=== PATIENT | female | born 1945 | race Caucasian/White ===

== ENCOUNTER → 2016-08-14 | Outpatient (CLI) | payer MEDICARE, OTHER ==
[~2016-08-14] MED LIST: ASPI-515 PO; BUTA1CAP30 PO; CALCIUM WITH D; DULO60CA7 PO; FISH1CAP7 PO; HYDR-3240 PO; LEVO112T2 PO; LISI-170 PO; MULT1TAB9 PO; OXCA600T3 PO; PANT40TA3 PO; PROP60CA8 PO; SIMV20TA PO; UBID150C PO
== END | disposition home or self-care (01) ==
LOC: CFH 14:32
PROVIDERS: ATTEND Internal Medicine Cardiovascular Disease
DX: R07.89 Other chest pain (principal); R06.02 Shortness of breath
CPT/HCPCS: 93306

== ENCOUNTER → 2016-08-15 | Outpatient (CLI) | payer MEDICARE, OTHER ==
[~2016-08-15] MED LIST changes: +REGADENOSON 0.4 MG/5 ML SYRINGE ONE
== END | disposition home or self-care (01) ==
LOC: CFH 12:03
PROVIDERS: ATTEND Internal Medicine Cardiovascular Disease
DX: R07.9 Chest pain, unspecified (principal)
CPT/HCPCS: 78452; 93017; A9502; J2785

== ENCOUNTER 2018-09-10 14:00 | Emergency (ER) | payer MEDICARE ==
[~2018-09-10] VITALS: Ht 157.5 cm; Wt 71.4 kg
[~2018-09-10 14:00] MED LIST changes: -REGADENOSON 0.4 MG/5 ML SYRINGE ONE
[2018-09-10] MEDS ORDERED: ONDANSETRON ODT 4 MG ONE (14:14)
[2018-09-10] MEDS ORDERED: ACETAMINOPHEN 500 MG TABLET ONE (14:14)
--- NOTE | 2018-09-10 14:20 | NUR ---
PT TO CT
[2018-09-10] MEDS ORDERED: ONDANSETRON ODT 4 MG PO ONE (14:30)
[2018-09-10] MEDS ORDERED: ACETAMINOPHEN 500 MG TABLET PO ONE (14:30)
[2018-09-10] MEDS ORDERED: OXYcodone 5 MG/5 ML ORAL.SOL UDC PO PRN (15:00)
--- NOTE | 2018-09-10 15:04 | NUR ---
PT IN XRAY
[2018-09-10 15:05] VITALS: BP 141/84
[2018-09-10] MEDS ORDERED: OXYcodone 5 MG/5 ML ORAL.SOL UDC ONE (15:37)
--- NOTE | 2018-09-10 15:46 | NUR ---
PT AMBULATED 100FT IN HALLWAY WITH STEADY GAIT
== END 2018-09-10 16:38 | disposition home or self-care (01) ==
LOC: ED 16:09
DX: S90.02XA Contusion of left ankle, initial encounter (principal); M54.2 Cervicalgia; M54.6 Pain in thoracic spine; M25.561 Pain in right knee; E78.5 Hyperlipidemia, unspecified; Z87.891 Personal history of nicotine dependence; V47.5XXA Car driver injured in collision with fixed or stationary object in traffic accident, initial encounter; Y93.89 Activity, other specified; Y92.89 Other specified places as the place of occurrence of the external cause; Y99.8 Other external cause status
CPT/HCPCS: 72072; 72125; 73502; 73564; 73610; 99284; Q0162

== ENCOUNTER → 2018-11-01 | Outpatient (CLI) | payer MEDICARE | END | disposition home or self-care (01) | LOC: CFH 09:16 | PROVIDERS: ATTEND Internal Medicine Cardiovascular Disease | DX: I35.8 Other nonrheumatic aortic valve disorders (principal); I31.3 Pericardial effusion (noninflammatory); I10 Essential (primary) hypertension; E78.5 Hyperlipidemia, unspecified; R94.31 Abnormal electrocardiogram [ECG] [EKG] | CPT/HCPCS: 93306 ==

== ENCOUNTER 2019-10-13 19:50 | Emergency (ER) | payer MEDICARE ==
[~2019-10-13] VITALS: Ht 162.6 cm; Wt 66.0 kg
[~2019-10-13 19:50] MED LIST changes: +PROP60CA36 PO; -PROP60CA8 PO
--- NOTE | 2019-10-13 20:03 | NUR ---
PERSON TO CONTACT, PAOLO (DAUGHTER) [phone]
[2019-10-13] MEDS ORDERED: ONDANSETRON 2MG/ML, 2ML ONE ×2 (21:18→23:54)
[2019-10-13] MEDS ORDERED: MORPHINE SULFATE 4 MG/ML, 1ML ONE (21:18)
[2019-10-13] MEDS ORDERED: ONDANSETRON 2MG/ML, 2ML IVPush ONE (21:30)
[2019-10-13] MEDS ORDERED: SODIUM CHLORIDE FLUSH 10ML SYR IVF ONE (21:30)
[2019-10-13] MEDS ORDERED: MORPHINE SULFATE 4 MG/ML, 1ML IVPush PRN (21:30)
--- NOTE | 2019-10-13 21:36 | NUR ---
CT PENDING LAB/CREATINE.
--- NOTE | 2019-10-13 21:40 | NUR ---
PRABHJOT RN: IV ESTABLISHED IN RIGHT HAND. PT MEDICATED PER EMAR. 5 RIGHTS ADDRESSED.
[2019-10-13 21:50] LABS: BASOPHILS # (AUTO) 0.03 x10^3/uL (0-0.1); BASOPHILS % (AUTO) 0 % (0-1); EOSINOPHILS # (AUTO) 0.16 x10^3/uL (0-0.4); EOSINOPHILS % (AUTO) 2 % (1-7); LYMPHOCYTES % (AUTO) 11 % (22-44); MD NO; MEAN CORPUSCULAR HGB CONC 33.4 g/dL (32.4-35.8); MEAN CORPUSCULAR VOLUME 95.7 fL (80-100); MEAN PLATELET VOLUME 6.8 fL (7.4-10.4); MONOCYTES # (AUTO) 0.57 x10^3/uL (0.2-0.8); MONOCYTES % (AUTO) 6 % (2-9); NEUTROPHILS # (AUTO) 7.93 x10^3/uL (1.8-6.8); NEUTROPHILS % (AUTO) 81 % (42-75); PLATELET COUNT 326 x10^3/uL (130-400); RED BLOOD COUNT 4.16 x10^6/uL (3.82-5.3)
[2019-10-13 22:03] LABS: ALANINE AMINOTRANSFERASE 245 U/L (12-78); ALBUMIN 3.7 g/dL (3.4-5.0); ANION GAP 6 mmol/L (5-15); CALCIUM 8.9 mg/dL (8.5-10.1); CHLORIDE 96 mmol/L (98-107); CREATININE 0.87 mg/dL (0.55-1.02)
[2019-10-13 22:05] LABS: ALKALINE PHOSPHATASE 169 U/L (45-117); BILIRUBIN,TOTAL 0.6 mg/dL (0.2-1.0); TOTAL PROTEIN 6.9 g/dL (6.4-8.2)
--- NOTE | 2019-10-13 22:44 | NUR ---
PT TO CT.
[2019-10-13] MEDS ORDERED: OMNIPAQUE 350 MG/ML, 100ML BOTTLE ONE (22:50)
[2019-10-14] MEDS ORDERED: ONDANSETRON 2MG/ML, 2ML IVPush ONE
[2019-10-14 00:02] VITALS: BP 137/78
== END 2019-10-14 00:04 | disposition home or self-care (01) ==
LOC: ED 23:30
DX: R10.13 Epigastric pain (principal); R10.11 Right upper quadrant pain; R10.32 Left lower quadrant pain; M25.511 Pain in right shoulder; I10 Essential (primary) hypertension; K21.9 Gastro-esophageal reflux disease without esophagitis; E78.5 Hyperlipidemia, unspecified; E03.9 Hypothyroidism, unspecified; Z90.49 Acquired absence of other specified parts of digestive tract; Z90.89 Acquired absence of other organs; Z90.710 Acquired absence of both cervix and uterus; Z87.891 Personal history of nicotine dependence
CPT/HCPCS: 36415; 74177; 80053; 83690; 85025; 93005; 96374; 96375; 96376; 99285; J2270; J2405; Q9967

== ENCOUNTER → 2019-10-17 | Outpatient (CLI) | payer MEDICARE ==
[~2019-10-17] MED LIST changes: +REGADENOSON 0.4 MG/5 ML SYRINGE ONE
== END | disposition home or self-care (01) ==
LOC: CFH 08:34
PROVIDERS: ATTEND Internal Medicine Cardiovascular Disease
DX: R07.89 Other chest pain (principal); R06.02 Shortness of breath
CPT/HCPCS: 78452; 93017; A9502; J2785

== ENCOUNTER → 2020-02-05 | Outpatient (CLI) | payer MEDICARE ==
[~2020-02-05] MED LIST changes: -REGADENOSON 0.4 MG/5 ML SYRINGE ONE
== END | disposition home or self-care (01) ==
LOC: CFH 11:27
DX: Z12.31 Encounter for screening mammogram for malignant neoplasm of breast (principal); Z13.820 Encounter for screening for osteoporosis; N95.9 Unspecified menopausal and perimenopausal disorder; M85.88 Other specified disorders of bone density and structure, other site
CPT/HCPCS: 76641; 77063; 77067; 77080

== ENCOUNTER 2020-06-06 11:26 | Emergency (ER) | payer MEDICARE ==
[~2020-06-06] VITALS: Ht 157.5 cm; Wt 65.0 kg
[~2020-06-06 11:26] MED LIST changes: -ASPI-515 PO; +ASPI-963 PO; +HYDR-1067 PO; -HYDR-3240 PO
--- NOTE | 2020-06-06 11:31 | NUR ---
PT BROUGHT IN BY ABHILASH FROM HOME WITH CHIEF COMPLAINT OF VERTIGO AND HEADACHE. PT IS ALERT AND ORIENTED
--- NOTE | 2020-06-06 12:12 | NUR ---
VIVIEN KHAN AT BEDSIDE
[2020-06-06 12:20] VITALS: BP 156/86
--- NOTE | 2020-06-06 12:39 | NUR ---
DISCHARGE INSTRUCTIONS REVIEWED
== END 2020-06-06 13:27 | disposition home or self-care (01) ==
LOC: ED 12:24
DX: R42 Dizziness and giddiness (principal); R20.2 Paresthesia of skin; R51.9 Headache, unspecified; K21.9 Gastro-esophageal reflux disease without esophagitis; E78.5 Hyperlipidemia, unspecified; I10 Essential (primary) hypertension; E03.9 Hypothyroidism, unspecified; Z90.89 Acquired absence of other organs; Z90.49 Acquired absence of other specified parts of digestive tract; Z90.710 Acquired absence of both cervix and uterus
CPT/HCPCS: 99283